=== PATIENT | female | born 1990 | race Two or more races ===

== ENCOUNTER → 2025-11-14 | Outpatient (CLI) | payer OTHER, SELFPAY ==
--- NOTE | 2025-11-14 16:16 | XR_ITS ---
EXAMINATION: Cervical spine, 5 views Technique: Cervical spine AP, AP odontoid, lateral, bilateral obliques, 5 views Exam date and time: November 14, 2025, 1624 hours INDICATION: Neck pain beginning 4 months ago. FINDINGS: Straightening normal cervical lordosis. No cervical fracture. No cervical disc narrowing. No neural foraminal stenosis IMPRESSION: Negative for osseous abnormality
== END | disposition home or self-care (01) ==
LOC: CDIM 16:11
PROVIDERS: Referring Provider Family Medicine; Visit Provider Family Medicine
DX: M54.2 Cervicalgia (principal)
CPT/HCPCS: 72050